=== PATIENT | female | born 1985 | race Hispanic/Latino ===

== ENCOUNTER 2021-04-11 20:03 | Emergency (ER) | payer MEDICAID, OTHER ==
--- NOTE | 2021-04-11 20:58 | Event Note ---
ED Screening Note Date of service: 04/11/21 Time: 20:57 ED Screening Note: 35-year-old female patient with history of factor V Leiden and ITP presents to the emergency department with complaints of a laceration to her right knee occurring earlier today. Patient states she accidentally cut herself on a broken mirror. Tetanus is up-to-date. Tachycardic in triage. General: Awake, appropriately interactive, no acute distress. Neck: Supple. Full range of motion intact. Cardiovascular: Normal peripheral perfusion. Pulmonary: No respiratory distress. Patient is speaking normally without use of accessory muscles. Skin: Laceration to right knee with wound dressing in place Neurological: No facial asymmetry. Speech is clear. Follows commands. Patient is alert and oriented. Musculoskeletal: Moves all four extremities spontaneously with normal range of motion. Psych: Cooperative. Appropriate mood and affect. I have greeted and performed a focused rapid initial assessment of this patient. A comprehensive ED assessment and evaluation of the patient, analysis of all test results, and completion of the medical decision-making process will be conducted by additional ED providers. This initial assessment/diagnostic orders/clinical plan/treatment(s) is/are subject to change based on patients health status, clinical progression and re-assessment. Further treatment and workup at subsequent clinical provider's discretion. Patient/guardian urged not to elope from the ED as their condition may be serious if not clinically assessed and managed.
--- NOTE | 2021-04-11 21:18 | XRay Report ---
RIGHT KNEE 3 VIEW(S) INDICATION / CLINICAL INFORMATION: laceration; r/o foreign body COMPARISON: None available. FINDINGS: BONES / JOINT(S): No acute fracture or subluxation. No significant arthritis. SOFT TISSUES: No significant abnormality. ADDITIONAL FINDINGS: None. Signer Name: Samuel Cardenas DO Signed: 04/11/2021 9:14 PM Workstation Name: [id number]
[2021-04-11] MEDS ORDERED: TETANUS,DIPH,PERTUSS(ACELL) VACCINE 0.5 ML SYRINGE IM ONE (21:39)
--- NOTE | 2021-04-11 21:39 | Emergency Department Report ---
- General Chief Complaint: Laceration/Recheck/Suture Stated Complaint: CUT ON LEG/ BLEEDING Time Seen by Provider: 04/11/21 21:10 Source: patient Mode of arrival: Ambulatory Limitations: No Limitations - History of Present Illness Initial Comments: Patient is a 35-year-old female who presents emergency room with complaints of a fall and a laceration to her right lower extremity. Patient states she has a cut over the right knee. Patient states it is wide open. Patient is not sure when her last tetanus was. Patient states the pain is a 10 out of 10. Patient states she was moving some stuff around and fell against a mirror that was leaned against the wall and cut her leg. Patient denies other injury. Patient denies other pain. Patient denies loss of consciousness. Patient denies any her head. Patient states she just tripped. Pain is a 10 out of 10. Patient states the pain is better with rest and worse with movement. 49 Patient denies recent travel. Patient denies recent international travel. Patient denies exposure to the novel coronavirus. Patient denies sick contacts. Patient denies fever and chills. Patient denies cough. Patient denies diarrhe a. Patient denies coming in contact with anybody with symptoms of the novel coronavirus. -: Sudden Extremity Location: Right: Knee Place: home Patient Tetanus UTD: No Context: accidental Associated Symptoms: pain, unable to move injured part Treatments Prior to Arrival: bandage - Related Data Previous Rx's Medication Instructions Recorded Last Taken Type HYDROcodone/APAP 7.5-325 [[place] 1 each PO Q8HR PRN #10 tablet 07/10/16 Unknown Rx 7.5-325 mg TAB] Ibuprofen [Motrin] 800 mg PO Q8HR PRN #14 tablet 07/10/16 Unknown Rx Allergies Allergy/AdvReac Type Severity Reaction Status Date / Time amoxicillin Allergy Unknown Verified 05/01/15 08:57 penicillin Allergy Unknown Verified 05/01/15 08:58 Sulfa (Sulfonamide Allergy Unknown Verified 05/01/15 08:58 Antibiotics) sulfamethoxazole Allergy Unknown Verified 05/01/15 08:58 [From Bactrim] trimethoprim [From Bactrim] Allergy Unknown Verified 05/01/15 08:58 ED Review of Systems ROS: Stated complaint: CUT ON LEG/ BLEEDING AND PASSING OUT Other details as noted in HPI Constitutional: denies: chills, fever Eyes: denies: eye pain, eye discharge, vision change ENT: denies: ear pain, throat pain Respiratory: denies: cough, shortness of breath, wheezing Cardiovascular: denies: chest pain, palpitations Endocrine: no symptoms reported Gastrointestinal: denies: abdominal pain, nausea, diarrhea Genitourinary: denies: urgency, dysuria, discharge Musculoskeletal: denies: back pain, joint swelling, arthralgia Skin: as per HPI. denies: rash, lesions Neurological: denies: headache, weakness, paresthesias Psychiatric: denies: anxiety, depression Hematological/Lymphatic: denies: easy bleeding, easy bruising ED Past Medical Hx - Past Medical History Previous Medical History?: Yes Additional medical history: ITP, Factor IV Leiden, Tachycardia - Surgical History Past Surgical History?: Yes Hx Appendectomy: Yes Additional Surgical History: tubal, c setion x 2 - Family History Family history: no significant - Social History Smoking Status: Current Every Day Smoker Substance Use Type: Alcohol - Medications Home Medications: Home Medications Medication Instructions Recorded Confirmed Last Taken Type HYDROcodone/APAP 7.5-325 [[place] 1 each PO Q8HR PRN #10 tablet 07/10/16 Unknown Rx 7.5-325 mg TAB] Ibuprofen [Motrin] 800 mg PO Q8HR PRN #14 tablet 07/10/16 Unknown Rx ED Physical Exam - General Limitations: No Limitations General appearance: alert, in no apparent distress - Head Head exam: Present: atraumatic, normocephalic - Eye Eye exam: Present: normal appearance - ENT ENT exam: Present: mucous membranes moist - Neck Neck exam: Present: normal inspection - Respiratory Respiratory exam: Present: normal lung sounds bilaterally. Absent: respiratory distress - Cardiovascular Cardiovascular Exam: Present: regular rate, normal rhythm. Absent: systolic murmur, diastolic murmur, rubs, gallop - GI/Abdominal GI/Abdominal exam: Present: soft, normal bowel sounds - Extremities Exam Extremities exam: Present: tenderness (Right knee), other (Large laceration noted to the right lateral and inferior knee. Laceration measures 12 cm x 6 cm. Laceration extends into the lateral joint. Appears to cut the lateral collateral ligament.) - Back Exam Back exam: Present: normal inspection - Neurological Exam Neurological exam: Present: alert, oriented X3 - Psychiatric Psychiatric exam: Present: normal affect, normal mood - Skin Skin exam: Present: warm, dry, intact, normal color. Absent: rash ED Course Vital Signs 04/11/21 04/12/21 20:48 00:59 Temperature 98.4 F 98 F Pulse Rate 127 H 100 H Respiratory 20 18 Rate Blood Pressure 126/84 119/75 [Right] O2 Sat by Pulse 97 99 Oximetry - Reevaluation(s) Reevaluation #1: Patient will have an IV placed, given Dilaudid for pain and a tetanus and 2 g of Ancef. I discussed transfer with patient. Patient agrees with transfer. Patient will need to be transferred due to laceration extending into the joint space. 04/11/21 22:08 Reevaluation #2: I discussed all results and clinical findings with patient. I discussed plan of care with patient. Patient agrees with plan of care. Patient is stable for transfer. Patient will be transferred via ground EMS to [facility]. 04/11/21 23:35 Reevaluation #3: She states her pain is better. Patient complained of nausea. Patient still agrees to transfer. Patient will be given Zofran. 04/12/21 00:20 - Consultations Consultation #1: I discussed the case with Dr. Alvarenga, orthopedist. Dr. Alvarenga recommends transfer to a trauma center. 04/11/21 22:05 Consultation #2: I discussed with [facility] the patient's case. [facility] [place] states they can reach out to the trauma surgeon. 04/11/21 22:15 Patient has been accepted by trauma surgeon, Dr. Ba. Patient will be transferred via ground EMS ER to ER to [facility]. 04/11/21 23:35 ED Medical Decision Making - Radiology Data Radiology results: report reviewed interpreted by me: Right knee x-ray: No fracture noted, soft tissue normal, normal joint space. No acute findings. No foreign body noted. RIGHT KNEE 3 VIEW(S) INDICATION / CLINICAL INFORMATION: laceration; r/o foreign body COMPARISON: None available. FINDINGS: BONES / JOINT(S): No acute fracture or subluxation. No significant arthritis. SOFT TISSUES: No significant abnormality. ADDITIONAL FINDINGS: None. - Medical Decision Making Patient is a 35-year-old female who presents emergency with a laceration to her right knee. Patient states she fell up against a mirror. Patient on examination found to have a large laceration that extends into the joint space. Patient's joint space is open. Patient was given a tetanus. Patient given IV antibiotics and fluids. Patient given pain medication. Patient's pain was controlled. I discussed the case with Miguel mcmullen and the [facility] has accepted the patient to be transferred ER to ER. Patient had an x-ray done and it was negative for fracture. Critical care time documented due to the multiple reassessments, prolonged time at the bedside, interpretation of diagnostics and labs. - Differential Diagnosis Exposed joint space, deep laceration, knee laceration, Critical Care Time: Yes Critical care time in (mins) excluding proc time.: 35 Critical care attestation.: If time is entered above; I have spent that time in minutes in the direct care of this critically ill patient, excluding procedure time. Critical Care Time: 35 minutes ED Disposition Clinical Impression: Pain in joint of right knee Laceration of right knee Qualifiers: Encounter type: initial encounter Qualified Code(s): S81.011A - Laceration without foreign body, right knee, initial encounter Open knee wound Qualifiers: Encounter type: initial encounter Laterality: right Qualified Code(s): S81.001A - Unspecified open wound, right knee, initial encounter Knee joint injury Qualifiers: Encounter type: initial encounter Laterality: right Qualified Code(s): S89.91XA - Unspecified injury of right lower leg, initial encounter Traumatic arthropathy of knee Qualifiers: Laterality: right Qualified Code(s): M12.561 - Traumatic arthropathy, right knee Disposition: DC/TX-70 ANOTHER TYPE HLTHCARE Is pt being admited?: No Does the pt Need Aspirin: No Condition: Critical Time of Disposition: 23:36
[2021-04-11] MEDS ORDERED: HYDROmorphone 1 MG/1 ML INJ IV ONE (21:44)
[2021-04-11] MEDS ORDERED: CLINDAMYCIN 600 MG/50 mL 600 MG/50 ML BAG IV ONE (21:59)
[2021-04-11] MEDS ORDERED: SODIUM CHLORIDE 0.9% 1000 ML 1,000 ML IV ONE (22:07)
[2021-04-12] MEDS ORDERED: ONDANSETRON 4 MG/2 ML INJ ONE (00:11)
[2021-04-12] MEDS ORDERED: ONDANSETRON 4 MG/2 ML INJ IV ONE (00:21)
[2021-04-12 01:00] VITALS: BP 119/75
== END 2021-04-12 03:00 | disposition other institution (70) ==
LOC: ED 20:03
DX: S81.011A Laceration without foreign body, right knee, initial encounter (principal); S81.001A Unspecified open wound, right knee, initial encounter; S89.91XA Unspecified injury of right lower leg, initial encounter; M12.561 Traumatic arthropathy, right knee; M25.561 Pain in right knee; Z88.2 Allergy status to sulfonamides; Z88.0 Allergy status to penicillin; Z88.6 Allergy status to analgesic agent; F17.200 Nicotine dependence, unspecified, uncomplicated; Z90.49 Acquired absence of other specified parts of digestive tract; Z98.51 Tubal ligation status; Z79.899 Other long term (current) drug therapy; Z98.890 Other specified postprocedural states; W18.30XA Fall on same level, unspecified, initial encounter; Y93.89 Activity, other specified; Y92.099 Unspecified place in other non-institutional residence as the place of occurrence of the external cause; Y99.8 Other external cause status
CPT/HCPCS: 73562; 90471; 90715; 96365; 96375; 99284; J1170; J2405; J7030